=== PATIENT | female | born 1980 | race Caucasian/White ===

== ENCOUNTER → 2016-04-19 | Outpatient (CLI) | payer OTHER ==
--- NOTE | 2016-04-21 07:59 | BMR ---
EXAMINATION TYPE: MR breast BILAT wo/w con DATE OF EXAM: 04/20/2016 5:19 PM COMPARISON: Outside diagnostic bilateral breast mammogram April 04, 2016 BI-RADS 5. Diagnostic lef t breast ultrasound April 04, 2016 BI-RADS 5. HISTORY: Malignant neoplasm, left breast 2 sites on stereotactic guided core biopsy April 10, 2016 . TECHNIQUE: A series of fat and water weighted images in the long and short axis views of both breasts are obtained in conjunction with dynamic contrast MRI with subtraction technique. The patient was i njected with 20 mL intravenous MultiHance gadolinium contrast. Three-dimensional and additional pos tprocessing imaging is created on independent workstation and reviewed during official interpretation of this study. FINDINGS: There is heterogeneously dense fibroglandular tissue redemonstrated throughout both breasts prominent in the upper outer aspects. There is fairly moderate to marked fairly symmetric background parenchymal enhancement making evaluation suboptimal. Corresponding to mammogram and ultrasound ther e is a lobulated mass in the 2 to 3:00 position of the left breast roughly 8 cm from the nipple measu ring 2.4 cm transversely by 2.3 cm anterior posterior dimension by 3.2 cm in craniocaudal dimension c onsistent with biopsy-proven malignancy. Artifact from biopsy clip is noted within the mass along sli ght superior aspect. Just superior to this in the anterior aspect along superior margin of neoplasm or mass there is artif act from biopsy clip which is approximately 4.7 cm away from anterior margin of mass. At this level t here is regional nonmass enhancement measuring roughly 1.5 x 1.3 cm along the medial superior portion of biopsy clip which correlates with second area of malignancy. Lateral to the larger mass there is oval heterogeneous enhancing lesion could reflect reactive lymph node. There are several suspicious asymmetrically enlarged lymph nodes in the left axilla. There is no convincing evidence for pathologic enhancement in the right breast. No suspicious skin th ickening is seen bilaterally. No concerning right axillary adenopathy is noted. No suspicious intrama mmary adenopathy is identified bilaterally. Tiny right-sided pleural effusion inferiorly independentl y is incidentally noted. Impression: MRI findings correlate with mammogram findings of multicentric neoplasm in the left breas t. No suspicious axillary adenopathy is noted. No convincing MRI evidence for invasive malignancy in the right breast. BI-RADS 6 biopsy-proven carcinoma left breast. BI-RADS 2 benign findings right breast. Recommendation: Appropriate surgical and oncologic management for known multifocal left breast cancer
== END | disposition home or self-care (01) ==
LOC: RADMRIMAIN 20:38
PROVIDERS: ATTEND Internal Medicine Hematology & Oncology
DX: C50.912 Malignant neoplasm of unspecified site of left female breast (principal)
CPT/HCPCS: 0159T; C8908; A9577; 77059

== ENCOUNTER → 2016-04-21 | Outpatient (CLI) | payer OTHER ==
--- NOTE | 2016-04-21 11:43 | PE ---
EXAMINATION TYPE: PET CT fusion skull to thigh DATE OF EXAM: 04/21/2016 10:41 AM CLINICAL HISTORY: Left-sided breast cancer initial staging study TECHNIQUE: Following the intravenous administration of 14.45 mCi of F-18 FDG, whole body images are performed from the skull base to the midthigh. Images are reviewed on the computer in the coronal, axial, and sagittal planes. Reconstructed rotating images are created on independent workstation and reviewed on the computer. A non-contrast CT is performed in conjunction with the PET scan. COMPARISON: Bilateral breast MRI from 2 days earlier FINDINGS: SKULL BASE AND NECK: No suspicious hypermetabolic uptake is seen in the neck suggest metastatic will opathy. CHEST, MEDIASTINUM, AND HILAR REGION: There is heterogeneous uptake in left breast mass corresponding to biopsy-proven malignancy measuring 2.2 x 1.3 cm on axial image 95 with max SUV of 10.69. Cranioca udal length is roughly 2.4 cm. No suspicious hypermetabolic uptake is seen to correspond to area of group of calcifications and nons pecific masslike enhancement on MRI anterior to this of second area of biopsy-proven malignancy. Ther e are prominent but benign-appearing left axillary lymph nodes that do not show hypermetabolic uptake , retained fatty hilum is present. No suspicious hypermetabolic uptake is seen in the right breast or axilla. No suspicious hypermetabolic uptake is seen in the remainder of the thorax. ABDOMEN AND PELVIS: No suspicious hypermetabolic uptake is seen in the abdomen or pelvis. Normal excr etion in the kidneys and bladder is identified. OSSEOUS STRUCTURES: No suspicious hypermetabolic uptake is seen in osseous structures. OTHER CT: Nasal septum is slightly deviated to right of midline. Liver is low dense consistent with diffuse fatty infiltration. Low-lying cecum is present in the right pelvis. IMPRESSION: Suspicious hypermetabolic uptake is seen in the biopsy-proven left breast mass or neoplas m. Second area of malignancy anteriorly does not show abnormal hypermetabolic uptake. No metastatic d isease is identified.
== END | disposition home or self-care (01) ==
LOC: RADPETMAIN 07:30
PROVIDERS: ATTEND Surgery
DX: C50.919 Malignant neoplasm of unspecified site of unspecified female breast (principal)
CPT/HCPCS: 78815; A9552

== ENCOUNTER → 2016-04-25 | Outpatient (CLI) | payer OTHER ==
--- NOTE | 2016-04-25 14:52 | US ---
EXAMINATION TYPE: US axilla extremity LT DATE OF EXAM: 04/25/2016 2:13 PM COMPARISON: NONE CLINICAL HISTORY: diagnosed with Breast CA, no palpable area. Findings:: Left axilla scan superiorly to tail of breast. No enlarged lymph nodes seen; no gross ab normality IMPRESSION: 1. No mass or adenopathy noted within the left axilla by ultrasound.
--- NOTE | 2016-04-26 10:54 | ECHOF ---
Referral Reason:C50.112 breast ca MEASUREMENTS -------- HEIGHT: 165.1 cm WEIGHT: 102.1 kg BP: IVSd: 1.5 cm (0.6 - 1.1) LVIDd: 4.2 cm (3.9 - 5.3) LVPWd: 1.5 cm (0.6 - 1.1) IVSs: 2.1 cm LVIDs: 2.5 cm LVPWs: 1.8 cm Ao Diam: 3.1 cm (2.0 - 3.7) AV Cusp: 2.0 cm (1.5 - 2.6) LA Diam: 3.6 cm (2.7 - 3.8) MV EXCURSION: 13.883 mm (> 18.000) MV EF SLOPE: 92 mm/s (70 - 150) EPSS: 0.4 cm MV E Justin: 0.90 m/s MV DecT: 142 ms MV A Justin: 0.85 m/s MV E/A Ratio: 1.06 RAP: 5.00 mmHg RVSP: 20.05 mmHg FINDINGS -------- Sinus rhythm. This was a technically good study. There is moderate concentric left ventricular hypertrophy. Overall left ventricular systolic function is normal with, an EF between 55 - 60 %. The right ventricle is normal in size and function. The left atrium is normal in size. The right atrium is normal in size. The aortic valve is trileaflet, and appears structurally normal. No aortic stenosis or regurgitation. There is trace mitral regurgitation. Trace tricuspid regurgitation present. The right ventricular systolic pressure, as measured by Doppler, is 20.05mmHg. Pulmonic valve appears structurally normal. The aortic root size is normal. The pericardium is normal. CONCLUSIONS -------- 1. Sinus rhythm. 2. Trace tricuspid regurgitation present. 3. The right ventricular systolic pressure, as measured by Doppler, is 20.05mmHg. 4. Pulmonic valve appears structurally normal. 5. The aortic root size is normal. 6. The pericardium is normal. 7. This was a technically good study. 8. There is moderate concentric left ventricular hypertrophy. 9. Overall left ventricular systolic function is normal with, an EF between 55 - 60 %. 10. The right ventricle is normal in size and function. 11. The left atrium is normal in size. 12. The right atrium is normal in size. 13. The aortic valve is trileaflet, and appears structurally normal. No aortic stenosis or regurgitation. 14. There is trace mitral regurgitation. RECENTERER: Zabrina Umana RDCS
== END ==
LOC: RADECHMAIN 13:37
PROVIDERS: ATTEND Internal Medicine Hematology & Oncology
DX: Z01.818 Encounter for other preprocedural examination (principal); I08.1 Rheumatic disorders of both mitral and tricuspid valves; I51.7 Cardiomegaly; C50.112 Malignant neoplasm of central portion of left female breast
CPT/HCPCS: 93306

== ENCOUNTER → 2016-07-11 | Outpatient (CLI) | payer OTHER ==
--- NOTE | 2016-07-12 10:46 | ECHOF ---
Referral Reason:breast ca C50.112 irwin castelanrteta Z01.818 MEASUREMENTS -------- HEIGHT: 10.2 cm WEIGHT: 96.2 kg BP: IVSd: 0.9 cm (0.6 - 1.1) LVIDd: 3.9 cm (3.9 - 5.3) LVPWd: 1.0 cm (0.6 - 1.1) IVSs: 2.4 cm LVIDs: 1.8 cm LVPWs: 1.8 cm Ao Diam: 2.9 cm (2.0 - 3.7) AV Cusp: 2.0 cm (1.5 - 2.6) LA Diam: 3.1 cm (2.7 - 3.8) MV EXCURSION: 13.189 mm (> 18.000) MV EF SLOPE: 67 mm/s (70 - 150) EPSS: 0.2 cm MV E Justin: 0.56 m/s MV DecT: 81 ms MV A Justin: 0.63 m/s MV E/A Ratio: 0.89 RAP: 5.00 mmHg RVSP: 13.29 mmHg FINDINGS -------- Sinus rhythm. This was a technically good study. The left ventricular size is normal. Left ventricular wall thickness is normal. Overall left ventricular systolic function is normal with, an EF between 55 - 60 %. The right ventricle is normal in size and function. The left atrium is normal in size. The right atrium is normal in size. The aortic valve is trileaflet, and appears structurally normal. No aortic stenosis or regurgitation. The mitral valve is normal. There is trace mitral regurgitation. The tricuspid valve appears structurally normal. Trace tricuspid regurgitation present. The right ventricular systolic pressure, as measured by Doppler, is 13.29mmHg. There is no pulmonic regurgitation present. The aortic root size is normal. There is no pericardial effusion. CONCLUSIONS -------- 1. This was a technically good study. 2. The aortic root size is normal. 3. There is no pericardial effusion. 4. Left ventricular wall thickness is normal. 5. Overall left ventricular systolic function is normal with, an EF between 55 - 60 %. 6. The left atrium is normal in size. 7. The aortic valve is trileaflet, and appears structurally normal. No aortic stenosis or regurgitation. 8. There is trace mitral regurgitation. 9. Trace tricuspid regurgitation present. 10. The right ventricular systolic pressure, as measured by Doppler, is 13.29mmHg. 11. There is no pulmonic regurgitation present. MANAGER PRINT: Zabrina Umana RDCS
== END | disposition home or self-care (01) ==
LOC: RADECHMAIN 13:13
PROVIDERS: ATTEND Internal Medicine Hematology & Oncology
DX: Z01.818 Encounter for other preprocedural examination (principal); C50.112 Malignant neoplasm of central portion of left female breast
CPT/HCPCS: 93306

== ENCOUNTER 2016-10-09 06:56 | Observation (INO) | payer OTHER ==
[2016-10-01 10:08] VITALS: BMI 36.0
[~2016-10-09 06:56] MED LIST: ALPRAZolam 0.5 MG TAB PO PRN; DEXAMETHASONE SOD PHOSPHATE 10 MG/ML 1 ML VIAL IV ONE; HEPARIN SODIUM,PORCINE 5,000 UNIT/ML 1 ML VIAL SQ ONE; MIDAZOLAM 2 MG/2 ML VIAL IV PRN; ONDANSETRON 4 MG/2 ML VIAL IVP ONE; Pre Op ABX Message 1 EACH MISC MISCELLANE ONE; SCOPOLAMINE 1.5MG/72HR PATCH TRANSDERM ONE
[2016-10-09] MEDS: LACTATED RINGERS 1,000 ML IV SCH ×2 (07:32→12:07)
[2016-10-09] MEDS ORDERED: ALPRAZolam 0.5 MG TAB PO ONE (07:39)
[2016-10-09] MEDS ORDERED: LIDOCAINE 1% INJ 10MG/ML (20 ML MDV) SQ ONE ×4 (08:23→13:03)
[2016-10-09] MEDS ORDERED: SODIUM BICARB 4% 5 ML VIAL (0.48 MEQ/ML) MISCELLANE ONE (09:00)
[2016-10-09] MEDS ORDERED: METHYLENE BLUE 50 MG/10 ML AMPUL MISCELLANE ONE (10:32)
--- NOTE | 2016-10-09 10:38 | NM ---
EXAMINATION TYPE: NM sentinel node injection DATE OF EXAM: 10/09/2016 COMPARISON: Needle localization earlier today. HISTORY: 36-year-old female with biopsy-proven left breast cancer and DCIS status post neoadjuvant ch emotherapy. TECHNIQUE AND FINDINGS: The procedure of sentinel lymph node injection was explained to the patient. The benefits, alternatives, and risks were discussed. An informed consent was then obtained. Overlying skin is cleaned with sterile alcohol. Lidocaine buffered with bicarbonate was used as anes thetic into the skin and subcutaneous tissue surrounding the nipple. Following this, 545 uCi Tc 99m Filtered Sulfur Colloid was injected into 4 equivalent doses at 12, 3, 6, and 9:00 position surroundi ng the left nipple intradermally. The injection sites were massaged by nuclear powerplant mechanic for 10 minutes after injection. T he patient tolerated the procedure well without any immediate complication. The patient was kept in the radiology department for short stay after the procedure and then taken to surgery for surgical pr ocedure what is presumed intraoperative gamma probe will be used for sentinel lymph node detection. IMPRESSION: Left breast radiotracer injection for sentinel node localization as above.
[2016-10-09] MEDS ORDERED: DEXTROSE 5% IRRIGATION ONE ×6 (10:45)
[2016-10-09] MEDS ORDERED: WATER IRRIGATION ONE ×6 (10:45)
[2016-10-09] MEDS ORDERED: METHYLENE BLUE IRRIGATION ONE ×6 (10:45)
[2016-10-09] MEDS ORDERED: HEPARIN SODIUM,PORCINE 5,000 UNIT/ML 1 ML VIAL SQ ONE (11:49)
[2016-10-09] MEDS ORDERED: ceFAZolin 2 GM in SODIUM CHLORIDE 0.9% 100 ML IVPB ONE (12:00)
[2016-10-09] MEDS ORDERED: fentaNYL (PF) 50 MCG/ML 2 ML AMP ONE (12:19)
[2016-10-09] MEDS ORDERED: MIDAZOLAM 2 MG/2 ML VIAL ONE (12:19)
[2016-10-09] MEDS ORDERED: LIDOCAINE 1% INJ 10MG/ML (20 ML MDV) ONE (12:19)
[2016-10-09] MEDS ORDERED: ONDANSETRON 4 MG/2 ML VIAL ONE (12:19)
[2016-10-09] MEDS ORDERED: PROPOFOL 10 MG/ML 20 ML VIAL IV ONE (12:19)
[2016-10-09] MEDS ORDERED: SUCCINYLCHOLINE CHLORIDE VIAL 200 MG/10 ML VIAL IV ONE (12:19)
[2016-10-09] MEDS ORDERED: METHYLENE BLUE 50 MG/10 ML AMPUL INJ ONE ×2 (12:39→13:03)
--- NOTE | 2016-10-09 14:58 | P.OP ---
Date of Procedure: 10/09/16 Preoperative Diagnosis: Left breast cancer in 2 sites Postoperative Diagnosis: Same Procedure(s) Performed: Lumpectomy of 2 sites of carcinoma in the left breast as well as sentinel node biopsy and lymphatic mapping Implants: Anesthesia: GETA Surgeon: Promise Hodges Estimated Blood Loss (ml): 30 IV fluids (ml): 800 Pathology: other (Lumpectomy site 2, sentinel node biopsy) Condition: stable Disposition: PACU Indications for Procedure: Biopsy-proven left breast cancer 2 sites Operative Findings: Lumpectomy 2 areas in the left breast as well as sentinel node biopsy Description of Procedure: Patient was taken to the operating room and following induction of general anesthesia the right breast was prepped in the periareolar area with alcohol right. Percent methylene blue was injected in the periareolar area over area and the breast massaged for 3 minutes. The this was for lymphatic mapping. The left breast and axilla were then prepped and draped in a sterile fashion. The patient had previously undergone needle localization of 2 areas of concern in the left breast laterally and behind the nipple areolar complex. A localization wire. The lateral area was approached initially. An incision was made and the dissection was carried down along the hook of the needle and surrounding tissue was excised. Radiograph of the specimen revealed that the area of concern had been removed. After assured that hemostasis was attained through the same incision continued dissection was performed to the hook of the second needle which had been placed medially. This was identified and surrounding tissue was excised. Radiograph of the specimen revealed the area of concern about removed. The wound was well irrigated. At this time instruments and gowns and gloves were changed and the axilla was approached. Using the Brien counter the area of increased radioactivity was identified and incision was made and carried down to a blue radioactive lymph node. This was removed and sent for frozen section evaluation which was negative for cancer. Following this the deep tissues were closed using a Vicryl suture followed by closure of the skin with a 4-0 Monocryl. A Eleuterio- Yanez drain was placed prior to this and secured with a nylon suture. Closure of the breast was then performed. Tissue mobilization of approximately 30 cm was performed laterally such that the area could be closed appropriately. A Biozorb sizer colostomy and a 3 x 4 0 Polysorb was chosen. The thyroid was rolled was placed and secured in place using a Vicryl suture. The overlying tissue patient was arranged of the tip of approximately 30 cm was then closed over by 0. Following this the area of the lumpectomy was measured and a sizer was utilized and terminated 4 bioabsorbable placed at this site as well. Surrounding tissue was mobilized the BioSorb was placed and secured using a Vicryl suture and the overlying tissues closed over this. Following this the deep tissues were closed using 3-0 Vicryl suture. Skin was closed using a 4-0 Monocryl. And the final skin suture was a running nylon suture. Patient tolerated procedure in stable condition. All instrument and sponge counts were correct at the end of the case. 2 Biozorb implant markers were placed.
--- NOTE | 2016-10-09 15:03 | P.DS ---
Providers Attending physician: Promise Hodges Primary care physician: Jair Sánchez Plan - Discharge Summary New Discharge Prescriptions: New HYDROcodone/APAP 5-325MG [[place] 5] 1 - 2 each PO Q4H PRN #20 tab PRN Reason: Pain No Action Levothyroxine Sodium [Synthroid] 250 mcg PO DAILY Discharge Medication List Levothyroxine Sodium [Synthroid] 250 mcg PO DAILY 10/01/16 [History] HYDROcodone/APAP 5-325MG [[place] 5] 1 - 2 each PO Q4H PRN #20 tab 10/09/16 [Rx] Follow up Appointment(s)/Referral(s): Promise Hodges MD [STAFF PHYSICIAN] - 1 Week Activity/Diet/Wound Care/Special Instructions: teach drain care do not drive while taking pain medication may shower after 48 hours wear bra at all times Discharge Disposition: HOME SELF-CARE
--- NOTE | 2016-10-09 16:04 | MM ---
EXAMINATION TYPE: MG pre op needle loc LT, MG pre op loc each addl. LT, MG surgical specimen LT x 2. DATE OF EXAM: 10/09/2016 COMPARISON: 04/10/2016 CLINICAL HISTORY: 36-year-old female referred for needle localization for biopsy proven left breast c ancer and DCIS status post new adjuvant chemotherapy. TECHNIQUE: Needle localization with wire placement and surgical excision of area of concern in the le ft breast, 2 sites. FINDINGS: The procedure of needle localization with wire placement and than surgical excision was exp lained to the patient. Benefits, alternatives, and risks were discussed. An informed consent was th en obtained. The shortest pathway for procedure was chosen. Site A, posteriorly and laterally, biopsy-proven breast cancer: The clip was targeted as the mass leanne wed dramatic interval improvement. Shortest pathway was a lateral approach. The overlying skin was pr epped and draped in usual sterile fashion. Lidocaine was used as anesthetic into the skin and subcut aneous tissue up to the level of area of concern. A 9 cm Kopans needle was used. It was placed via a lateral approach under mammographic guidance. Subsequent 90 degrees mammogram show the needle to b e in satisfactory position relative to the targeted area. At this point, wire was placed and the nee dle was withdrawn. The wire was fixed to patient's skin. Site B, anteriorly and medially, biopsy-proven DCIS: Shortest pathway was a medial approach. The over lying skin was prepped and draped in usual sterile fashion. Lidocaine was used as anesthetic into th e skin and subcutaneous tissue up to the level of area of concern. A 7 cm Kopans needle was used. I t was placed via a medial approach under mammographic guidance. Subsequent 90 degrees mammogram show the needle to be in satisfactory position relative to the targeted area. At this point, wire was pl aced and the needle was withdrawn. The wire was fixed to patient's skin. Images were marked for surgeon. The patient tolerated the procedure well without any immediate complication. The patient was kept in the radiology department for short stay after the procedure and then taken to surgery for surgical e xcision. Wire and biopsy clips are identified in both specimen mammograms. The patient was kept in hospital for short stay after the procedure and then discharged home in stabl e condition. IMPRESSION: Successful, uncomplicated needle localization with wire placement and surgical excision of 2 sites (m ore posteriorly, biopsy-proven breast cancer and more anteriorly, DCIS) in the left breast; full path ology results to follow.
[2016-10-09] MEDS ORDERED: METOCLOPRAMIDE 5 MG/ML 2 ML VIAL IVP ONE (16:40)
[2016-10-09] MEDS ORDERED: ONDANSETRON 4 MG/2 ML VIAL IVP PRN (17:49)
[2016-10-09] MEDS ORDERED: HYDROcodone/APAP 5-325MG 1 EACH TAB PO PRN ×2 (17:51)
[2016-10-09] MEDS ORDERED: diphenhydrAMINE 50 MG/ML 1 ML VIAL IVP ONE (18:11)
[2016-10-09] MEDS: HYDROmorphone 1 MG/ML 1 ML SYRINGE IVP PRN (18:57)
[2016-10-09] MEDS: ceFAZolin 2 GM in SODIUM CHLORIDE 0.9% 100 ML IVPB SCH (19:58)
[2016-10-10] MEDS: HYDROmorphone 1 MG/ML 1 ML SYRINGE IVP PRN ×2 (00:18→06:11)
[2016-10-10] MEDS: HEPARIN SODIUM,PORCINE 5,000 UNIT/ML 1 ML VIAL SQ SCH ×2 (00:18→09:50)
[2016-10-10] MEDS: ceFAZolin 2 GM in SODIUM CHLORIDE 0.9% 100 ML IVPB SCH ×2 (00:19→06:10)
[2016-10-10] MEDS: LACTATED RINGERS 1,000 ML IV SCH ×2 (03:40→06:18)
[2016-10-10] MEDS ORDERED: LEVOTHYROXINE 100 MCG TAB PO SCH (06:30)
[2016-10-10] MEDS ORDERED: LEVOTHYROXINE 50 MCG TAB PO SCH (06:30)
[2016-10-10 10:32] VITALS: BP 119/68; PULSE 103; RESP 20; TEMP 98.2
== END 2016-10-10 11:51 | disposition home or self-care (01) ==
LOC: OR 06:56 → 6PED 15:21 → OR 10-10 07:02 → 6PED 10-10 07:03
PROVIDERS: ADMIT Surgery; ATTEND Surgery
DX: C50.912 Malignant neoplasm of unspecified site of left female breast (principal); R11.2 Nausea with vomiting, unspecified; E03.9 Hypothyroidism, unspecified; Z79.899 Other long term (current) drug therapy; Z92.21 Personal history of antineoplastic chemotherapy; Z80.41 Family history of malignant neoplasm of ovary; Z80.42 Family history of malignant neoplasm of prostate; Z80.0 Family history of malignant neoplasm of digestive organs; Z80.8 Family history of malignant neoplasm of other organs or systems; Z90.710 Acquired absence of both cervix and uterus
CPT/HCPCS: 19301; 38900; 38525; 76098; 19281; 19282; 38792; G0378; C1713; A9541; J2250; J0330; J1200; J1644 ×2; J1100; J2765; J0690 ×2; J2405; J2001; J3010; J1170 ×2; J2704; Q9968

== ENCOUNTER → 2016-11-02 | Outpatient (CLI) | payer OTHER ==
--- NOTE | 2016-11-02 12:55 | ECHOF ---
Referral Reason:C50.112 Breast CA,Z01.818 Pre Chemo MEASUREMENTS -------- HEIGHT: 162.6 cm WEIGHT: 97.5 kg BP: 160/84 RVIDd: 3.0 cm (< 3.3) IVSd: 1.3 cm (0.6 - 1.1) LVIDd: 4.1 cm (3.9 - 5.3) LVPWd: 1.3 cm (0.6 - 1.1) IVSs: 1.8 cm LVIDs: 2.8 cm LVPWs: 1.8 cm LA Diam: 3.1 cm (2.7 - 3.8) LAESV Index (A-L): 23.59 ml/m Ao Diam: 3.2 cm (2.0 - 3.7) AV Cusp: 2.3 cm (1.5 - 2.6) MV EXCURSION: 18.048 mm (> 18.000) MV EF SLOPE: 68 mm/s (70 - 150) EPSS: 0.3 cm MV E Justin: 0.89 m/s MV DecT: 242 ms MV A Justin: 0.64 m/s MV E/A Ratio: 1.39 FINDINGS -------- Sinus rhythm. This was a technically good study. The left ventricular size is normal. There is mild concentric left ventricular hypertrophy. Overall left ventricular systolic function is normal with, an EF between 55 - 60 %. The right ventricle is normal in size. Normal LA size by volume 22+/-6 ml/m2. The right atrium is normal in size. The aortic valve is trileaflet and appears structurally normal. The mitral valve is normal. The tricuspid valve appears structurally normal. The pulmonic valve was not well visualized. There is no pulmonic regurgitation present. The aortic root size is normal. IVC Not well visulized. There is no pericardial effusion. CONCLUSIONS -------- 1. Sinus rhythm. 2. There is no pulmonic regurgitation present. 3. The aortic root size is normal. 4. There is no pericardial effusion. 5. This was a technically good study. 6. There is mild concentric left ventricular hypertrophy. 7. Overall left ventricular systolic function is normal with, an EF between 55 - 60 %. 8. Normal LA size by volume 22+/-6 ml/m2. 9. The aortic valve is trileaflet and appears structurally normal. 10. The mitral valve is normal. 11. The tricuspid valve appears structurally normal. 12. The pulmonic valve was not well visualized. 3D ANIMATOR: Zabrina Umana RDCS
== END | disposition home or self-care (01) ==
LOC: RADECHMAIN 11:21
PROVIDERS: ATTEND Internal Medicine Hematology & Oncology
DX: Z01.810 Encounter for preprocedural cardiovascular examination (principal); C50.112 Malignant neoplasm of central portion of left female breast; I51.7 Cardiomegaly
CPT/HCPCS: 93306

== ENCOUNTER → 2017-02-04 | Outpatient (CLI) | payer OTHER ==
--- NOTE | 2017-02-04 18:50 | BD ---
EXAMINATION TYPE: MG DEXA axial skeleton. DATE OF EXAM: 02/04/2017 COMPARISON: NONE CLINICAL HISTORY: Height: 65 IN Weight: 228 LBS FRAX RISK QUESTIONS: Alcohol (3 or more units per day): NO Family History (Parent hip fracture): NO Glucocorticoids (More than 3mos): NO (Ex: prednisone, prednisolone, methylprednisolone, dexamethasone, and hydrocortisone). History of Fracture in Adulthood: NO Secondary Osteoporosis: 1. Type 1 Diabetes: NO 2. Hyperthyroidism: NO 3. Menopause before 45: YES AGE 33 HYSTERECTOMY 4. Malnutrition: NO 5. Chronic liver disease: NO Rheumatoid Arthritis: NO Current Tobacco Use: NO RISK FACTORS HISTORY OF: Active: YES Postmenopausal woman: YES AGE 33 MEDICATIONS: Thyroid Medications: YES Which medication: Synthroid How Lon YEARS Additional Medications: SYNTHROID HERCEPTIN EVERY 3 WEEKS FOR TEN MONTHS Additional History: BREAST CANCER WITH CHEMO AND RADIATION AGE 35 EXAM MEASUREMENTS: Bone mineral densitometry was performed using the Prestigos System. Bone mineral density as measured about the Lumbar spine is: ----- L1-L4(G/cm2): 1.163 T Score Values are as follows: ----- L2: -0.6 ----- L3: 0.1 ----- L4: -0.4 ----- L1-L4: -0.1 Bone mineral density BASELINE Bone mineral density about the R hip (g/cm2): 0.912 Bone mineral density about the L hip (g/cm2): 0.886 T Score values are as follows: -----R Neck: -0.9 -----L Neck: -1.1 -----R Total: -0.6 -----L Total: -0.7 Bone mineral density BASELINE IMPRESSION: 1. Osteopenia (T Score between -2.5 and -1 ) as noted by T score values at the left hip There is slightly increased risk of fracture and the patient may be considered for treatment. Re-Screen 2-5 years. Normal (Values between +1 and -1 indicate normal bone mass) as noted by T score values at the right h ip and lumbar spine. NOTE: T-SCORE=SD OF THE YOUNG ADULT MEAN.
--- NOTE | 2017-02-05 12:24 | ECHOF ---
Referral Reason:Breast Ca C50.112, Z01.818 Pre chemo MEASUREMENTS -------- HEIGHT: 165.1 cm WEIGHT: 99.8 kg BP: 134/74 RVIDd: 3.3 cm (< 3.3) IVSd: 1.2 cm (0.6 - 1.1) LVIDd: 4.8 cm (3.9 - 5.3) LVPWd: 1.2 cm (0.6 - 1.1) IVSs: 1.8 cm LVIDs: 3.3 cm LVPWs: 1.7 cm LA Diam: 3.8 cm (2.7 - 3.8) LAESV Index (A-L): 28.89 ml/m Ao Diam: 2.9 cm (2.0 - 3.7) AV Cusp: 2.1 cm (1.5 - 2.6) MV EXCURSION: 15.618 mm (> 18.000) MV EF SLOPE: 71 mm/s (70 - 150) EPSS: 0.5 cm MV E Justin: 0.80 m/s MV DecT: 186 ms MV A Justin: 0.84 m/s MV E/A Ratio: 0.95 RAP: 5.00 mmHg RVSP: 20.59 mmHg FINDINGS -------- Sinus rhythm. This was a technically good study. The left ventricular size is normal. There is borderline concentric left ventricular hypertrophy. Overall left ventricular systolic function is normal with, an EF between 55 - 60 %. The right ventricle is mildly enlarged. LA is midly dilated 29-33ml/m2. The right atrium is normal in size. The aortic valve is trileaflet and appears structurally normal. There is trace to mild mitral regurgitation. Trace tricuspid regurgitation present. Right ventricular systolic pressure is normal at < 35 mmHg. The pulmonic valve was not well visualized. The aortic root size is normal. IVC Not well visulized. There is no pericardial effusion. CONCLUSIONS -------- 1. Sinus rhythm. 2. There is trace to mild mitral regurgitation. 3. Trace tricuspid regurgitation present. 4. Right ventricular systolic pressure is normal at < 35 mmHg. 5. The pulmonic valve was not well visualized. 6. The aortic root size is normal. 7. IVC Not well visulized. 8. There is no pericardial effusion. 9. This was a technically good study. 10. The left ventricular size is normal. 11. There is borderline concentric left ventricular hypertrophy. 12. Overall left ventricular systolic function is normal with, an EF between 55 - 60 %. 13. The right ventricle is mildly enlarged. 14. LA is midly dilated 29-33ml/m2. 15. The right atrium is normal in size. 16. The aortic valve is trileaflet and appears structurally normal. INTERLOCKING MACHINE OPERATOR: Zabrina Umana RDCS
== END | disposition home or self-care (01) ==
LOC: RADECHMAIN 15:35
PROVIDERS: ATTEND Internal Medicine Hematology & Oncology
DX: Z01.810 Encounter for preprocedural cardiovascular examination (principal); M85.852 Other specified disorders of bone density and structure, left thigh; C50.112 Malignant neoplasm of central portion of left female breast; I08.1 Rheumatic disorders of both mitral and tricuspid valves; Z78.0 Asymptomatic menopausal state; Z79.890 Hormone replacement therapy; Z01.818 Encounter for other preprocedural examination
CPT/HCPCS: 77080; 93306

== ENCOUNTER 2017-03-12 06:53 | Day surgery (SDC) | payer OTHER ==
[2017-03-05 15:06] VITALS: BMI 36.3
[~2017-03-12 06:53] MED LIST changes: -ALPRAZolam 0.5 MG TAB PO PRN; -DEXAMETHASONE SOD PHOSPHATE 10 MG/ML 1 ML VIAL IV ONE; -HEPARIN SODIUM,PORCINE 5,000 UNIT/ML 1 ML VIAL SQ ONE; +LACTATED RINGERS 1,000 ML IV SCH; -MIDAZOLAM 2 MG/2 ML VIAL IV PRN; -ONDANSETRON 4 MG/2 ML VIAL IVP ONE; -Pre Op ABX Message 1 EACH MISC MISCELLANE ONE; -SCOPOLAMINE 1.5MG/72HR PATCH TRANSDERM ONE
[2017-03-12] MEDS ORDERED: LACTATED RINGERS 1,000 ML IV ONE (07:03)
[2017-03-12 07:25] VITALS: TEMP 98.1
[2017-03-12] MEDS ORDERED: PROPOFOL 10 MG/ML 20 ML VIAL IV ONE (07:58)
--- NOTE | 2017-03-12 08:32 | P.PCN ---
Date of Procedure: 03/12/17 Preoperative Diagnosis: Questionable blood per rectum Postoperative Diagnosis: Internal/extension of external componet to hemorrhoids Procedure(s) Performed: Colonoscopy Anesthesia: MAC Surgeon: Promise Hodges Estimated Blood Loss (ml): 0 IV fluids (ml): 300 Pathology: none sent Condition: stable Disposition: PACU Indications for Procedure: Questionable blood per rectum Operative Findings: Tortuous sigmoid colon, internal/extending to external hemorrhoids Description of Procedure: Patient was taken to the endoscopy suite and following sedation rectal exam was performed. Patient was noted to have adequate sphincter tone no external hemorrhoids of concern colonoscope was passed through the anus into the rectum scope was passed into the sigmoid colon which was tortuous and redundant and was then passed through the splenic flexure transverse colon hepatic flexure right colon down to the area of the cecum. Circumferential observation of the mucosa did not reveal any lesions of concern in the cecum or right colon. No lesions of concern in the transverse colon or left colon. As the scope was withdrawn no lesions of concern were noted in the sigmoid colon scope was brought down to the rectum where it was retroflexed. As the scope was withdrawn internal hemorrhoids were identified which had an external extension to them. No mucosal lesions of concern noted. Impression/plan: 1. Internal/external hemorrhoids Plan: 1. Conservative management 2. Repeat scope at age 51 unless patient develops symptoms 14 colonoscopy sooner.
[2017-03-12 08:53] VITALS: BP 128/77; PULSE 79; RESP 18
--- NOTE | 2017-03-12 09:43 | P.DS ---
Providers Attending physician: Promise Hodges Primary care physician: Jair Sánchez Plan - Discharge Summary New Discharge Prescriptions: No Action Levothyroxine Sodium [Synthroid] 250 mcg PO DAILY Discharge Medication List Levothyroxine Sodium [Synthroid] 250 mcg PO DAILY 10/01/16 [History] Follow up Appointment(s)/Referral(s): Promise Hodges MD [STAFF PHYSICIAN] - As Needed Patient Instructions/Handouts: *Surgery [facility] - (Anesthesia) Endoscopy Discharge Instructions, Colonoscopy (DC), Hemorrhoids (DC), Hemorrhoids (GEN) Discharge Disposition: HOME SELF-CARE
== END 2017-03-12 09:56 | disposition home or self-care (01) ==
LOC: ORWHC2ENDO 06:53
PROVIDERS: ATTEND Surgery
DX: K64.8 Other hemorrhoids (principal); K64.4 Residual hemorrhoidal skin tags; E07.9 Disorder of thyroid, unspecified; Q43.8 Other specified congenital malformations of intestine; Z79.899 Other long term (current) drug therapy; Z88.5 Allergy status to narcotic agent; Z90.710 Acquired absence of both cervix and uterus
CPT/HCPCS: 45378; J1642; J2704

== ENCOUNTER → 2017-05-02 | Outpatient (CLI) | payer OTHER ==
--- NOTE | 2017-05-03 08:59 | ECHOF ---
Referral Reason:C50.112 Breast Ca, Z01.818 Post Herceptin MEASUREMENTS -------- HEIGHT: 162.6 cm WEIGHT: 90.7 kg BP: RVIDd: 3.6 cm (< 3.3) IVSd: 1.2 cm (0.6 - 1.1) LVIDd: 4.8 cm (3.9 - 5.3) LVPWd: 1.1 cm (0.6 - 1.1) IVSs: 1.6 cm LVIDs: 3.7 cm LVPWs: 1.7 cm LAESV Index (A-L): 13.41 ml/m Ao Diam: 3.4 cm (2.0 - 3.7) AV Cusp: 2.1 cm (1.5 - 2.6) LA Diam: 3.0 cm (2.7 - 3.8) MV E Justin: 0.75 m/s MV DecT: 299 ms MV A Justin: 0.75 m/s MV E/A Ratio: 0.99 FINDINGS -------- Sinus rhythm. This was a technically adequate study. The left ventricular size is normal. There is mild concentric left ventricular hypertrophy. Overa ll left ventricular systolic function is low-normal with, an EF between 50 - 55 %. The right ventricle is mildly enlarged. The right ventricular systolic function is normal. Normal LA size by volume 22+/-6 ml/m2. The right atrium is normal in size. The aortic valve is trileaflet, and appears structurally normal. No aortic stenosis or regurgitation. The mitral valve leaflets are mildly thickened. There is trace mitral regurgitation. Trace tricuspid regurgitation present. Right ventricular systolic pressure is normal at < 35 mmHg. There is no evidence of pulmonary hypertension. The pulmonic valve was not well visualized. The aortic root size is normal. Normal inferior vena cava with normal inspiratory collapse consistent with estimated right atrial pre ssure of 5 mmHg. The pericardium is normal. There is no pericardial effusion. CONCLUSIONS -------- 1. Sinus rhythm. 2. This was a technically adequate study. 3. The left ventricular size is normal. 4. There is mild concentric left ventricular hypertrophy. 5. Overall left ventricular systolic function is low-normal with, an EF between 50 - 55 %. 6. The right ventricle is mildly enlarged. 7. Normal LA size by volume 22+/-6 ml/m2. 8. The aortic valve is trileaflet, and appears structurally normal. No aortic stenosis or regurgitati on. 9. The mitral valve leaflets are mildly thickened. 10. There is trace mitral regurgitation. 11. Trace tricuspid regurgitation present. 12. Right ventricular systolic pressure is normal at < 35 mmHg. 13. There is no evidence of pulmonary hypertension. 14. The pulmonic valve was not well visualized. 15. The aortic root size is normal. 16. There is no pericardial effusion. DIANETICIST: Luca Medrano RDCS
== END | disposition home or self-care (01) ==
LOC: RADECHMAIN 16:12
PROVIDERS: ATTEND Internal Medicine Hematology & Oncology
DX: Z01.818 Encounter for other preprocedural examination (principal); C50.112 Malignant neoplasm of central portion of left female breast; I05.9 Rheumatic mitral valve disease, unspecified; Z92.21 Personal history of antineoplastic chemotherapy
CPT/HCPCS: 93306

== ENCOUNTER → 2017-05-20 | Outpatient (CLI) | payer OTHER ==
[~2017-05-20] MED LIST changes: -LACTATED RINGERS 1,000 ML IV SCH; +LEUPROLIDE ACET 11.25MG SYRGKIT IM ONE
[2017-05-20 09:05] VITALS: BP 130/83; PULSE 101; RESP 16; TEMP 98
== END | disposition home or self-care (01) ==
LOC: PROCWHC3 08:52
PROVIDERS: ATTEND Internal Medicine Hematology & Oncology
DX: C50.112 Malignant neoplasm of central portion of left female breast (principal); Z79.811 Long term (current) use of aromatase inhibitors
CPT/HCPCS: 96402; J1950

== ENCOUNTER → 2017-05-24 | Outpatient (CLI) | payer OTHER ==
--- NOTE | 2017-05-24 12:33 | CT ---
EXAMINATION TYPE: CT abdomen w con DATE OF EXAM: 05/24/2017 COMPARISON: NONE HISTORY: Breast cancer; Abn liver functions CT DLP: 1728 mGycm Automated exposure control for dose reduction was used. TECHNIQUE: Helical acquisition of images was performed from the lung bases through the top of iliac crest to include entire abdomen. CONTRAST: Performed with Oral Contrast and with IV Contrast, patient injected with 100 ml mL of Omnipaque 300. FINDINGS: LUNG BASES: There is evidence of hepatic steatosis with hepatomegaly. No space-occupying lesion is id entified. LIVER/GB: No significant abnormality is appreciated. PANCREAS: No significant abnormality is seen. SPLEEN: No significant abnormality is seen. ADRENALS: No significant abnormality is seen. KIDNEYS: No significant abnormality is seen. BOWEL: No significant abnormality is seen. LYMPH NODES: No significant abnormality is seen. OSSEOUS STRUCTURES: No significant abnormality is seen. FREE AIR: No free air is visualized. OTHER: IMPRESSION: HEPATOMEGALY WITH HEPATIC STEATOSIS. NO SPACE-OCCUPYING LESIONS IDENTIFIED.
== END | disposition home or self-care (01) ==
LOC: RADCTMAIN 11:28
PROVIDERS: ATTEND Internal Medicine Hematology & Oncology
DX: K76.0 Fatty (change of) liver, not elsewhere classified (principal); R16.0 Hepatomegaly, not elsewhere classified; C50.112 Malignant neoplasm of central portion of left female breast; Z92.21 Personal history of antineoplastic chemotherapy
CPT/HCPCS: 74160; Q9967

== ENCOUNTER → 2017-05-27 | Outpatient (CLI) | payer OTHER ==
--- NOTE | 2017-05-27 13:14 | MM ---
Reason for exam: history of breast cancer, conservation therapy. Last mammogram was performed 7 months ago. History: Patient has history of breast cancer at age 36. Chemotherapy, April 2017. Radiation therapy of the left breast, January 2017. Malignant MG pre op loc each addl LT of the left breast, October 09, 2016. Malignant MG pre op needle loc LT of the left breast, October 09, 2016. Lumpectomy of the left breast, September 2016. Took antineoplastic for 2 months beginning at age 36. Physical Findings: Nurse did not find any significant physical abnormalities on exam. MG Diagnostic Mammo w CAD LURDES Bilateral CC, MLO, and ML view(s) were taken. Spot compression CC view(s) were taken of the right breast. Prior study comparison: October 09, 2016, mammogram. April 19, 2016, bilateral MR breast bilat wo/w con. April 04, 2016, mammogram. On the right a nodular asymmetry centrally on the CC view appears to measure 5mm at 1 o'clock on the lateral view. Surgical clips associated with 2 focal masses in the 9 o'clock subareolar and 3 o'clock left breast possible chronic post operative changes. These results were verbally communicated with the patient and result sheet given to the patient on 05/27/17. ASSESSMENT: Incomplete: need additional imaging evaluation, BI-RAD 0 RECOMMENDATION: Ultrasound of both breasts. (right 12-2 o'clock, left 9 o'clock and 3 o'clock)
--- NOTE | 2017-05-27 13:19 | USB ---
Reason for exam: additional evaluation requested from abnormal screening. History: Patient has history of breast cancer at age 36. Chemotherapy, April 2017. Radiation therapy of the left breast, January 2017. Malignant MG pre op loc each addl LT of the left breast, October 09, 2016. Malignant MG pre op needle loc LT of the left breast, October 09, 2016. Lumpectomy of the left breast, September 2016. Took antineoplastic for 2 months beginning at age 36. Physical Findings: Nurse did not find any significant physical abnormalities on exam. US Breast Limited BILAT Right breast ultrasound demonstrates a 5 x 3 x 4mm oval, hypoechoic lesion at 2 o'clock, possibly cystic, 6 month ultrasound and mammogram recommended. Left breast ultrasound includes all four quadrants, the retroareolar region and axilla. Finding demonstrates a 26 x 24 x 18mm irregular, mixed, hypoechoic lesion at 3 o'clock and a 33 x 28 x 48mm irregular, hypoechoic lesion at the posterior nipple. Possible chronic post perioperative changes. Biopsy is recommended. These results were verbally communicated with the patient and result sheet given to the patient on 05/27/17. ASSESSMENT: Left Breast: Suspicious, BI-RAD 4 Right Breast: Probably benign, BI-RADS 3 RECOMMENDATION: 1. LEFT: Ultrasound core biopsy of the left breast. (2 sites) 2. RIGHT: 6 month f/u diagnositic mammogram and targeted ultrasound at 2:00. Called Dr. Cosme with mammographic findings. Biopsy scheduled for 05/29/17 at 8 o'clock. PRELIMINARY REPORT CALLED AND FAXED TO DR. COSME ON 05/27/17. [facility]
== END | disposition home or self-care (01) ==
LOC: RADMAMWWP 09:35
PROVIDERS: ATTEND Internal Medicine Hematology & Oncology
DX: Z08 Encounter for follow-up examination after completed treatment for malignant neoplasm (principal); Z85.3 Personal history of malignant neoplasm of breast
CPT/HCPCS: 77066

== ENCOUNTER → 2017-05-29 | Day surgery (SDC) | payer OTHER ==
[2017-05-29 07:18] VITALS: RESP 16; BMI 38.2
--- NOTE | 2017-05-29 09:34 | USB ---
ULTRASOUND GUIDED FNA AND CORE BIOPSY LEFT BREAST: CLINICAL HISTORY: Abnormal mammogram and ultrasound FINDINGS: The procedure was explained to the patient. The risks, complications, benefits and alternatives were discussed and any questions were answered. Informed consent was obtained. Patient was placed supine on the ultrasound table and prepped and draped in the usual sterile fashion. Utilizing a 18-gauge vacuum assisted needle five passes were made into the 2 requested locations within the left breast. The core samples did not yield a large amount of soft tissue. Therefore aspiration was performed and there is removal of approximately 8 cc of fluid in the subareolar central region and approximately 6 cc within the 3: 00 region. Follow-up mammogram demonstrated ideal placement of post procedural clips. The size of the area of concern was markedly reduced relative to the previous mammogram. Patient was stable throughout the procedure. Pathology is pending. All elements of maximal barrier technique were utilized. IMPRESSION: 1. Successful ultrasound guided FNA and core biopsy of the 2 requested sites within the left breast. As noted above there appear to be a large fluid component to both lesions which was aspirated as well as sampled by core biopsy. See above. Follow-up MRI could BE obtained as clinically warranted if pathology does not yield adequate diagnosis or concordant diagnosis. Pathology Results: Benign A. BREAST, LEFT, THREE O'CLOCK, ASPIRATE: MINIMALLY CELLULAR SPECIMEN CONSISTING OF BLOOD AND SCATTERED HISTIOCYTES; NON-DIAGNOSTIC. B. BREAST, LEFT, POSTERIOR NIPPLE, ASPIRATE: VIRTUALLY ACELLULAR SPECIMEN CONSISTING OF BLOOD AND INFLAMMATORY CELLS; NON-DIAGNOSTIC. A. BREAST, LEFT, THREE O'CLOCK, CORE BIOPSY: SCAR WITH FIBROSIS AND FAT NECROSIS. NEGATIVE FOR MALIGNANCY. B. BREAST, LEFT, POSTERIOR NIPPLE, CORE BIOPSY: SCAR WITH FIBROSIS, FAT NECROSIS AND SCLEROSING ADENOSIS. NEGATIVE FOR MALIGNANCY. SEE NOTE. Recommendation Follow up mammogram of the left breast in 6 months. SARKIS
[2017-05-29 09:45] VITALS: BP 115/76; PULSE 103; TEMP 98.3
--- NOTE | 2017-05-29 09:50 | MM ---
Reason for exam: additional evaluation requested from abnormal screening. Last mammogram was performed less than 1 month ago. History: Patient has history of breast cancer at age 36. Chemotherapy, April 2017. Radiation therapy of the left breast, January 2017. Malignant MG pre op loc each addl LT of the left breast, October 09, 2016. Malignant MG pre op needle loc LT of the left breast, October 09, 2016. Lumpectomy of the left breast, September 2016. Took antineoplastic for 2 months beginning at age 36. MG Diagnostic Mammo LT Wo CAD CC and MLO view(s) were taken of the left breast. Prior study comparison: May 27, 2017, bilateral MG diagnostic mammo w CAD LURDES. October 09, 2016, mammogram. ASSESSMENT: Post procedure mammogram for marker placement RECOMMENDATION: Ultrasound of the left breast in 6 months. PENDING PATHOLOGY RESULTS.
== END | disposition home or self-care (01) ==
LOC: RADUSWWP 06:55
PROVIDERS: ATTEND Internal Medicine Hematology & Oncology
DX: N64.1 Fat necrosis of breast (principal); N60.32 Fibrosclerosis of left breast; N60.22 Fibroadenosis of left breast; Z85.3 Personal history of malignant neoplasm of breast; Z92.21 Personal history of antineoplastic chemotherapy; Z92.3 Personal history of irradiation; Z88.5 Allergy status to narcotic agent
CPT/HCPCS: 10022 ×2; 88305; 88173; 88342; 88341; 77065; 76942; 19083; 19084; A4648; J2001

== ENCOUNTER 2017-07-26 05:45 | Day surgery (SDC) | payer OTHER ==
[2017-07-22 11:34] VITALS: BMI 36.8
--- NOTE | 2017-07-25 17:41 | P.GSHP ---
History of Present Illness H&P Date: 07/26/17 CHIEF COMPLAINT: Breast cancer. HISTORY OF PRESENT ILLNESS: The patient is a 36-year-old female diagnosed with invasive breast cancer. She had a Mediport placement. She presents for Port-A-Cath removal upon completion of her chemotherapy. PAST MEDICAL HISTORY: Breast cancer. PAST SURGICAL HISTORY: Breast biopsy. CURRENT MEDICATIONS: See list. ALLERGIES: See list. SOCIAL HISTORY: No active tobacco or alcohol use. FAMILY HISTORY: Noncontributory. REVIEW OF ORGAN SYSTEMS: CONSTITUTIONAL: Denies any fever or chills. Denies recent weight loss or weight gain. HEENT: Denies any trouble with vision, hearing or nosebleeds. No difficulty swallowing. BREASTS: Please see above. PHYSICAL EXAMINATION: Vital signs: Stable GENERAL: Well developed female and in no acute distress. Pleasant. HEENT: No sclera icterus. Extraocular movements grossly intact. Moist buccal mucosa. Head is atraumatic, normocephalic. Hears conversational speech. No nasal drainage. NECK: Supple without lymphadenopathy. No JV distention. CHEST: Non-labored respirations and equal bilateral excursions. CARDIOVASCULAR: Regular rate and rhythm. Palpable 2+ radial pulses. ABDOMEN: Nontender. MUSCULOSKELETAL: No clubbing, cyanosis or edema. NEUROLOGIC: No focal or lateralizing signs. PSYCH: Appropriate affect. Alert and oriented to person, place and time. ASSESSMENT: 1. Breast cancer. 2. Need for chemotherapeutic access. PLAN: 1. Agree with Port-A-Cath removal per patient's request. Past Medical History Past Medical History: Cancer, Hypertension, Thyroid Disorder Additional Past Medical History / Comment(s): dx. 2015 w/breast cancer received chemo and radiation, anemia during previous History of Any Multi-Drug Resistant Organisms: None Reported Past Surgical History: Breast Surgery, Section, Hysterectomy Additional Past Surgical History / Comment(s): C/S x3, thyroidectomy. September 2016 Left Breast Lumpectomy Past Anesthesia/Blood Transfusion Reactions: Motion Sickness, Postoperative Nausea & Vomiting (PONV) Additional Past Anesthesia/Blood Transfusion Reaction / Comment(s): severe PONV Smoking Status: Never smoker - Past Family History Father Family Medical History: Cancer Sister(s) Family Medical History: Cancer Medications and Allergies Home Medications Medication Instructions Recorded Confirmed Type Levothyroxine Sodium [Synthroid] 250 mcg PO DAILY 10/01/16 07/22/17 History Biotin 2,500 mcg PO DAILY 07/22/17 07/22/17 History Cholecalciferol (Vitamin D3) 2,000 unit PO DAILY 07/22/17 07/22/17 History [Vitamin D3] Lisinopril [Zestril] 10 mg PO DAILY 07/22/17 07/22/17 History Allergies Allergy/AdvReac Type Severity Reaction Status Date / Time morphine AdvReac Nausea & Verified 07/22/17 11:20 Vomiting
[~2017-07-26 05:45] MED LIST changes: -LEUPROLIDE ACET 11.25MG SYRGKIT IM ONE; +ceFAZolin IN SWFI 2 GM/20 ML SYRINGE IVP ONE
[2017-07-26] MEDS ORDERED: ONDANSETRON 4 MG/2 ML VIAL IVP ONE (05:46)
[2017-07-26] MEDS ORDERED: DEXAMETHASONE SOD PHOSPHATE 10 MG/ML 1 ML VIAL IV ONE (05:46)
[2017-07-26] MEDS ORDERED: LACTATED RINGERS 1,000 ML IV SCH (05:46)
[2017-07-26] MEDS ORDERED: MIDAZOLAM 2 MG/2 ML VIAL IV PRN (05:46)
[2017-07-26] MEDS ORDERED: fentaNYL (PF) 50 MCG/ML 2 ML AMP IV PRN (05:46)
[2017-07-26 06:24] VITALS: TEMP 97.3
[2017-07-26] MEDS ORDERED: LIDOCAINE 1% 20 ML VIAL (10MG/ML) FOR IV START INTRADERMA ONE (06:38)
[2017-07-26] MEDS ORDERED: SCOPOLAMINE 1.5MG/72HR PATCH TRANSDERM ONE (06:42)
[2017-07-26] MEDS ORDERED: LIDOCAINE 1% INJ 10MG/ML (20 ML MDV) ONE (07:34)
[2017-07-26] MEDS ORDERED: PROPOFOL 10 MG/ML 20 ML VIAL IV ONE (07:34)
[2017-07-26] MEDS ORDERED: fentaNYL (PF) 50 MCG/ML 2 ML AMP ONE (07:34)
[2017-07-26] MEDS ORDERED: MIDAZOLAM 2 MG/2 ML VIAL ONE (07:34)
[2017-07-26] MEDS ORDERED: BUPIVACAINE (PF) 0.5% 30 ML VIAL SQ ONE (07:49)
--- NOTE | 2017-07-26 08:07 | P.OP ---
Date of Procedure: 07/26/17 Description of Procedure: SURGEON: CARMEN MARCELINO MD PROGRAM SUPPORT SPECIALIST: None. PREOPERATIVE DIAGNOSIS: 1. Breast cancer 2. Chemotherapeutic venous access. POSTOPERATIVE DIAGNOSIS: 1. Breast cancer 2. Chemotherapeutic venous access. OPERATION: Removal of right internal jugular vein Port-A-Cath. ANESTHESIA: MAC with 30 mL local ESTIMATED BLOOD LOSS: 5 mL SPECIMENS REMOVED: Port-A-Cath COMPLICATIONS: None. INDICATIONS: The patient is a 36-year-old female who completed chemotherapy for breast cancer. She now has elected for removal. Benefits and risks were described. Informed consent was obtained. DESCRIPTION OF PROCEDURE: Patient was brought to the operating room, laid in supine position. After IV sedation the chest wall on the left side was prepped and draped in standard sterile fashion. Prior to incision, a timeout protocol was confirmed with surgical team regarding the patient's name including procedures to be performed. As this was a clean case, no further antibiotics were required. Additionally, early ambulation was encouraged for DVT prophylaxis. Attention was brought to the area of the port site, whereby a total of 30 mL of local was infiltrated into the skin for a field block. A #15 blade was used to incise along the previous cicatrix. Electro- Bovie cautery was used to control for hemostasis. Adhesions were lysed around the Mediport. The port was extracted without sequelae. Pressure for 2 minutes was placed along the internal jugular vein. Hemostasis was checked along the pocket of the Port-A-Cath site. The wound was closed in layers using 3-0 Vicryl for the deep subcutaneous tissues followed by 4-0 Monocryl in a running subcuticular fashion. Dermabond was applied to the skin. Once dried a 4 x 4 Optifoam was applied. At the end of the procedure needle, sponge and instrument counts were verified correct by the director surgical. The patient had tolerated the procedure well and was taken to postanesthesia care in stable condition. FINDINGS: 1. Unremarkable Port-a-cath extraction. Plan - Discharge Summary New Discharge Prescriptions: New Ibuprofen [Motrin] 600 mg PO Q8HR PRN #20 tab PRN Reason: Pain No Action Levothyroxine Sodium [Synthroid] 250 mcg PO DAILY Lisinopril [Zestril] 10 mg PO DAILY Cholecalciferol (Vitamin D3) [Vitamin D3] 2,000 unit PO DAILY Biotin 2,500 mcg PO DAILY Discharge Medication List Levothyroxine Sodium [Synthroid] 250 mcg PO DAILY 10/01/16 [History] Biotin 2,500 mcg PO DAILY 07/22/17 [History] Cholecalciferol (Vitamin D3) [Vitamin D3] 2,000 unit PO DAILY 07/22/17 [History] Lisinopril [Zestril] 10 mg PO DAILY 07/22/17 [History] Ibuprofen [Motrin] 600 mg PO Q8HR PRN #20 tab 07/26/17 [Rx] Follow up Appointment(s)/Referral(s): Carmen Marcelino MD [STAFF PHYSICIAN] - As Needed Activity/Diet/Wound Care/Special Instructions: Expecting bruising for the next 5 days that will resolve in 2 weeks. May shower. No bathtub soaks. Remove dressing on Saturday. Discharge Disposition: HOME SELF-CARE
[2017-07-26 08:42] VITALS: BP 121/65; PULSE 100; RESP 18
== END 2017-07-26 09:01 | disposition home or self-care (01) ==
LOC: OR 05:45
PROVIDERS: ATTEND Surgery Plastic and Reconstructive Surgery
DX: Z45.2 Encounter for adjustment and management of vascular access device (principal); Z85.3 Personal history of malignant neoplasm of breast; Z17.0 Estrogen receptor positive status [ER+]; Z92.21 Personal history of antineoplastic chemotherapy; Z92.3 Personal history of irradiation; I10 Essential (primary) hypertension; E89.0 Postprocedural hypothyroidism; Z79.890 Hormone replacement therapy; Z79.899 Other long term (current) drug therapy; Z88.5 Allergy status to narcotic agent
CPT/HCPCS: 36590; J2250; J1100; J2405; J2001; J3010; J2704; J0690

== ENCOUNTER → 2017-08-19 | Outpatient (CLI) | payer OTHER ==
[~2017-08-19] MED LIST changes: +LEUPROLIDE ACET 11.25MG SYRGKIT IM ONE; +SODIUM CHLORIDE 0.9% 500 ML in EMPTY BAG 1 BAG IV PRN; +ZOLEDRONIC ACID 4 MG in SODIUM CHLORIDE 0.9% 100 ML IV ONE; -ceFAZolin IN SWFI 2 GM/20 ML SYRINGE IVP ONE
[2017-08-19 09:06] VITALS: BP 122/84; PULSE 73; RESP 16; TEMP 98.3
== END | disposition home or self-care (01) ==
LOC: PROCWHC3 08:46
PROVIDERS: ATTEND Internal Medicine Hematology & Oncology
DX: C50.112 Malignant neoplasm of central portion of left female breast (principal); Z79.811 Long term (current) use of aromatase inhibitors
CPT/HCPCS: 96365; 96402; J3489; J1950

== ENCOUNTER → 2017-08-21 | Outpatient (CLI) | payer OTHER ==
--- NOTE | 2017-08-21 15:54 | ECHOF ---
Referral Reason:C50.11 Breast Cancer Z01.818 Encounter for other p MEASUREMENTS -------- HEIGHT: 162.6 cm WEIGHT: 99.8 kg BP: RVIDd: 3.0 cm (< 3.3) IVSd: 1.2 cm (0.6 - 1.1) LVIDd: 5.0 cm (3.9 - 5.3) LVPWd: 1.2 cm (0.6 - 1.1) IVSs: 1.5 cm LVIDs: 3.8 cm LVPWs: 1.4 cm LAESV Index (A-L): 17.99 ml/m Ao Diam: 2.8 cm (2.0 - 3.7) AV Cusp: 1.7 cm (1.5 - 2.6) LA Diam: 3.1 cm (2.7 - 3.8) EPSS: 0.3 cm MV E Justin: 0.68 m/s MV DecT: 469 ms MV A Justin: 0.85 m/s MV E/A Ratio: 0.80 RAP: 5.00 mmHg RVSP: 19.28 mmHg MV EF SLOPE: 93.70 mm/s (70 - 150) MV EXCURSION: 1.71 cm (> 18.000) FINDINGS -------- Sinus rhythm. This was a technically adequate study. The left ventricular size is normal. There is mild concentric left ventricular hypertrophy. Overa ll left ventricular systolic function is low-normal with, an EF between 50 - 55 %. The right ventricle is normal in size and function. Normal LA size by volume 22+/-6 ml/m2. The right atrium is normal in size. The aortic valve is trileaflet, and appears structurally normal. No aortic stenosis or regurgitation. The mitral valve leaflets are mildly thickened. There is trace mitral regurgitation. Trace tricuspid regurgitation present. Right ventricular systolic pressure is normal at < 35 mmHg. There is no evidence of pulmonary hypertension. The pulmonic valve was not well visualized. The aortic root size is normal. Normal inferior vena cava with normal inspiratory collapse consistent with estimated right atrial pre ssure of 5 mmHg. There is no pericardial effusion. CONCLUSIONS -------- 1. Sinus rhythm. 2. This was a technically adequate study. 3. The left ventricular size is normal. 4. There is mild concentric left ventricular hypertrophy. 5. Overall left ventricular systolic function is low-normal with, an EF between 50 - 55 %. 6. Normal LA size by volume 22+/-6 ml/m2. 7. The aortic valve is trileaflet, and appears structurally normal. No aortic stenosis or regurgitati on. 8. The mitral valve leaflets are mildly thickened. 9. There is trace mitral regurgitation. 10. Trace tricuspid regurgitation present. 11. Right ventricular systolic pressure is normal at < 35 mmHg. 12. There is no evidence of pulmonary hypertension. 13. The pulmonic valve was not well visualized. 14. The aortic root size is normal. 15. There is no pericardial effusion. JEWEL INSPECTOR: Luca Niño RDCS
== END | disposition home or self-care (01) ==
LOC: RADECHMAIN 12:47
PROVIDERS: ATTEND Internal Medicine Hematology & Oncology
DX: Z01.818 Encounter for other preprocedural examination (principal); C50.112 Malignant neoplasm of central portion of left female breast; I08.1 Rheumatic disorders of both mitral and tricuspid valves
CPT/HCPCS: 93306

== ENCOUNTER → 2017-09-18 | Outpatient (CLI) | payer OTHER ==
--- NOTE | 2017-09-18 07:44 | US ---
EXAMINATION TYPE: US abdomen complete DATE OF EXAM: 09/18/2017 COMPARISON: CT 05/24/2017 CLINICAL HISTORY: R94.5 Abnormal Liver Functions. History of breast cancer. Elevated liver enzymes. N o other symptoms EXAM MEASUREMENTS: Liver Length: 22.9 cm Gallbladder Wall: 0.2 cm CBD: 0.3 cm Spleen: 11.4 cm Right Kidney: 12.7 x 6.0 x 5.2 cm Left Kidney: 11.4 x 5.4 x 4.8 cm Pancreas: Tail obscured by overlying bowel gas, visualized portions show no abnormality Liver: Coarse and echogenic echotexture. Enlarged Gallbladder: wnl Evidence for sonographic Vargas's sign: No CBD: wnl Spleen: wnl Right Kidney: No hydronephrosis or masses seen Left Kidney: No hydronephrosis or masses seen Upper IVC: wnl Abd Aorta: Obscured by bowel gas, visualized portions wnl The liver is coarse and echogenic. The intrahepatic portion of the IVC and proximal abdominal aorta are within normal limits. There is no evidence of cholelithiasis. Common bile duct is unremarkable. The visualized portions of the pancreas are homogenous. The spleen is unremarkable. Kidneys are s ymmetric and free of hydronephrosis. No renal lesions are seen. IMPRESSION: 1. Fatty hepatic infiltration. Hepatomegaly.
== END | disposition home or self-care (01) ==
LOC: RADUSWWP 06:57
PROVIDERS: ATTEND Internal Medicine Hematology & Oncology
DX: K76.0 Fatty (change of) liver, not elsewhere classified (principal); R16.0 Hepatomegaly, not elsewhere classified
CPT/HCPCS: 76700

== ENCOUNTER → 2017-09-19 | Outpatient (CLI) | payer OTHER ==
--- NOTE | 2017-09-19 12:14 | USB ---
Reason for exam: clinical finding. History: Patient has history of breast cancer at age 36. Benign US breast aspiration ea add LT of the left breast, May 29, 2017. Benign US breast aspiration single LT of the left breast, May 29, 2017. Benign US breast needle core LT of the left breast, May 29, 2017. Benign US breast needle core addl LT of the left breast, May 29, 2017. Chemotherapy, April 2017. Radiation therapy of the left breast, January 2017. Malignant MG pre op loc each addl LT of the left breast, October 09, 2016. Malignant MG pre op needle loc LT of the left breast, October 09, 2016. Lumpectomy of the left breast, September 2016. Took antineoplastic for 2 months beginning at age 36. Indicated problem(s): palpable abnormality in the left breast. Physical Findings: Nurse Summary: x 2 BB's (nurse kp). US Breast LT Left complete breast ultrasound includes all four quadrants, the retroareolar region and axilla. Finding demonstrates a 1.1 x 1.6 x 1.9cm mixed lesion at 3 o'clock, patient reports this is increased in size and a 2.4 x 2.1 x 2.5cm mixed lesion at 10 o'clcok. These are at biopsy sites. Appearance of biopsy site and cancer would be the same. Consider MRI. Biopsy of the site could be performed under ultrasound. These results were verbally communicated with the patient and result sheet given to the patient on 09/19/17. ASSESSMENT: Probably benign, BI-RAD 3 RECOMMENDATION: Surgical consultation of the left breast. (3 o'clock increased in size previous biopsy site. This could be biopsied by ultrasound) Called with mammographic findings and has scheduled an appointment for the patient for 09/20/17 at 12:[address] Hodges. PRELIMINARY REPORT CALLED AND FAXED TO DR. HODGES ON 09/19/17.
== END | disposition home or self-care (01) ==
LOC: RADUSWWP 08:48
PROVIDERS: ATTEND Internal Medicine Hematology & Oncology
DX: N64.52 Nipple discharge (principal); Z85.3 Personal history of malignant neoplasm of breast

== ENCOUNTER → 2017-09-20 | Outpatient (CLI) | payer OTHER ==
[2017-09-20 12:44] VITALS: BP 105/66; PULSE 99; TEMP 98.2; BMI 36.8
--- NOTE | 2017-09-20 13:16 | P.GSHP ---
Past Medical History Past Medical History: Cancer, Thyroid Disorder Additional Past Medical History / Comment(s): dx. 2015 w/breast cancer, anemia during previous History of Any Multi-Drug Resistant Organisms: None Reported Past Surgical History: Section, Hysterectomy Additional Past Surgical History / Comment(s): C/S x3, thyroidectomy Past Anesthesia/Blood Transfusion Reactions: Motion Sickness, Postoperative Nausea & Vomiting (PONV) Additional Past Anesthesia/Blood Transfusion Reaction / Comment(s): severe PONV Smoking Status: Never smoker - Past Family History Father Family Medical History: Cancer Sister(s) Family Medical History: Cancer Medications and Allergies Home Medications Medication Instructions Recorded Confirmed Type Levothyroxine Sodium [Synthroid] 250 mcg PO DAILY 10/01/16 09/20/17 History Biotin 2,500 mcg PO DAILY 07/22/17 09/20/17 History Cholecalciferol (Vitamin D3) 2,000 unit PO DAILY 07/22/17 09/20/17 History [Vitamin D3] Lisinopril [Zestril] 10 mg PO DAILY 07/22/17 09/20/17 History Allergies Allergy/AdvReac Type Severity Reaction Status Date / Time morphine AdvReac Nausea & Verified 08/19/17 09:07 Vomiting Surgical - Exam Vital Signs Temp Pulse BP Pulse Ox 98.2 F 99 105/66 96 09/20/17 12:39 09/20/17 12:39 09/20/17 12:39 09/20/17 12:39
--- NOTE | 2017-10-24 08:39 | P.GSHP ---
History of Present Illness H&P Date: 09/20/17 The patient is a 37-year-old white female who is status post left breast lumpectomy with neoadjuvant chemotherapy and radiation therapy to the left breast. She was initially diagnosed in March 2016 at the age of 35. She subsequently underwent neoadjuvant chemotherapy and then underwent a lumpectomy with radiation therapy to follow. She is recently noticed an area in the left breast of increasing size and discomfort. In June 2017 she underwent core biopsy of the left breast and all areas which were cored were negative for malignancy. At that time follow-up mammogram of the left breast in 6 months time was recommended. The last radiographic evaluation of the right breast was in April 2016 which was by an MRI. No lesions of concern at that time were noted in the right breast. Patient had repeat left breast ultrasound performed yesterday and this was reviewed with the radiologist. Upon reviewing his been recommended that she have a repeat core biopsy of at minimum the area of 3:00 in the left breast. family history: father: prostate siter: thyroid maternal grandmother: ovarian paternal aunt: aunt of ovarian cancer at 32 paternal cousin: at 35 of colon cancer paternal aunt: thyroid cancer patient had left breast cancer at 35, had neoadjuvant chemotherapy and radiation surgical history: 1. left breast lumpectomy 2. total thyroidectomy 3. port placed and removed 4. partial hysterectomy just took uterus 5. 3 c sections past medical history: 1. none social history: smoke: none alcohol: none drugs: none menarche: 13 : 4, first at 20, breast fed none BCP/Hormones: 1 year BCP to regulate periods menopause: hysterectomy at 34 - Constitutional Constitutional: Reports sweats, Denies chills - EENT Eyes: denies blurred vision, denies pain Ears: deny: decreased hearing Ears, nose, mouth and throat: Denies headache, Denies sore throat - Breasts Breasts: bilateral: as per HPI - Cardiovascular Cardiovascular: Denies chest pain, Denies shortness of breath - Respiratory Respiratory: Denies cough, Denies 7 - Gastrointestinal Gastrointestinal: Denies abdominal pain, Denies diarrhea, Denies nausea, Denies vomiting - Genitourinary (Female) Genitourinary: Reports as per HPI - Musculoskeletal Musculoskeletal: Denies myalgias - Integumentary Integumentary: Denies pruritus, Denies rash - Neurological Neurological: Denies numbness, Denies weakness - Psychiatric Psychiatric: Denies anxiety, Denies depression - Endocrine Comment: hypothyroid - Hematologic/Lymphatic Comment: none - Allergic/Immunologic Comment: morphine Past Medical History Past Medical History: Cancer, Thyroid Disorder Additional Past Medical History / Comment(s): dx. 2015 w/breast cancer, anemia during previous History of Any Multi-Drug Resistant Organisms: None Reported Past Surgical History: Section, Hysterectomy Additional Past Surgical History / Comment(s): C/S x3, thyroidectomy Past Anesthesia/Blood Transfusion Reactions: Motion Sickness, Postoperative Nausea & Vomiting (PONV) Additional Past Anesthesia/Blood Transfusion Reaction / Comment(s): severe PONV Smoking Status: Never smoker - Past Family History Father Family Medical History: Cancer Sister(s) Family Medical History: Cancer Medications and Allergies Home Medications Medication Instructions Recorded Confirmed Type Levothyroxine Sodium [Synthroid] 250 mcg PO DAILY 10/01/16 09/20/17 History Biotin 2,500 mcg PO DAILY 07/22/17 09/20/17 History Cholecalciferol (Vitamin D3) 2,000 unit PO DAILY 07/22/17 09/20/17 History [Vitamin D3] Lisinopril [Zestril] 10 mg PO DAILY 07/22/17 09/20/17 History Allergies Allergy/AdvReac Type Severity Reaction Status Date / Time morphine AdvReac Nausea & Verified 08/19/17 09:07 Vomiting Surgical - Exam - General obese - Eyes normal ocular movement - ENT no hearing loss, no congestion - Neck no masses, trachea midline - Respiratory normal respiratory effort, clear to auscultation - Cardiovascular Rhythm: regular Heart Sounds: normal: S1, S2 - Abdomen Abdomen: soft, non tender, no guarding, no rigid, no rebound - Neurologic no disoriented, no combative - Psychiatric oriented to time, oriented to person, oriented to place, speech is normal, memory intact Breast examination: Breasts: Multiple positional exam no dominant masses or nodules of concern Right axilla: No adenopathy of concern Left breast: Increased fullness in the area of prior lumpectomy incision is clean and dry Left axilla: No adenopathy of concern Assessment and Plan Assessment: Impression/plan: 1. Patient status post lumpectomy for left breast cancer 2. Increasing mass in left breast with abnormal ultrasound 3. Hypothyroid secondary to thyroid resection 4. Strong family history of cancer Plan: 1. Core biopsy ultrasound-guided of the left breast 2. Patient is considering oophrectomy with Dr. Steve 3. We'll see patient in follow-up after breast biopsy Cc: Dr. Steve, Dr. Lee
== END ==
LOC: WWCWWP 12:34
PROVIDERS: ATTEND Surgery
DX: Z53.9 Procedure and treatment not carried out, unspecified reason (principal)

== ENCOUNTER → 2017-09-30 | Day surgery (SDC) | payer OTHER ==
[2017-09-30 11:38] VITALS: PULSE 96; RESP 16; BMI 36.6
[2017-09-30 13:39] VITALS: BP 130/85; TEMP 98.1
--- NOTE | 2017-09-30 14:35 | USB ---
EXAMINATION TYPE: US biopsy breast VAD LT, Post procedure diagnostic mammo LT wo CAD DATE OF EXAM: 09/30/2017 CLINICAL HISTORY: 37-year-old female Z85.3 HISTORY OF BREAST CANCER. Patient status post 2 site lumpectomy on 10/09/2016 and radiation therapy. Patient with breast pain enlarging palpable abnormality at the 3:00 lumpectomy site. TECHNIQUE: Ultrasound guided core biopsy of the left breast 3:00 position. COMPARISON: 09/19/2017 and 05/29/2017 FINDINGS: The procedure of ultrasound guided core biopsy was explained to the patient. Benefits, alternatives, and risks were discussed. An informed consent was then obtained. The patient was placed in supine positioning for imaging and for the procedure. The overlying skin was prepped and draped in usual sterile fashion. Lidocaine buffered with bicarbonate was used as anesthetic into the skin and subcutaneous tissue up to area of concern in the 3:00 left breast. Under ultrasound guidance, a 13-gauge vacuum assisted Mammotome Elite biopsy gun device was used to obtain 7 core samples. Following this, a ribbon clip was left in lesion, suspected lumpectomy site scar, relatively similar in appearance and size as compared to 05/29/2017. The patient tolerated the procedure well without any immediate complication. The patient was kept in the radiology department for short stay after the procedure and then discharged home in stable condition. Post procedure mammogram shows ribbon clip at the 3:00 lumpectomy site. A coil clip is also present here from the biopsy performed on 05/29/2017. IMPRESSION: Successful, uncomplicated ultrasound guided re-biopsy of palpable area 3:00 left breast which corresponds to one of the patient's lumpectomy sites. The patient feels that this is enlarging. We note benign results on the recent 05/29 biopsy here. Full pathology results to follow. Pathology Results: Benign BREAST, LEFT, ULTRASOUND GUIDED CORE BIOPSY: Scar with fibrosis and inflammation. Negative for malignancy. Recommendation Follow up mammogram of the left breast in 6 months. SARKIS
== END | disposition home or self-care (01) ==
LOC: RADUSWWP 11:15
PROVIDERS: ATTEND Surgery
DX: N60.32 Fibrosclerosis of left breast (principal); N61.0 Mastitis without abscess; L90.5 Scar conditions and fibrosis of skin; Z85.3 Personal history of malignant neoplasm of breast; Z92.3 Personal history of irradiation
CPT/HCPCS: 88305; 77065; 19083; A4648; J2001

== ENCOUNTER → 2017-11-19 | Outpatient (CLI) | payer OTHER ==
[~2017-11-19] MED LIST changes: -SODIUM CHLORIDE 0.9% 500 ML in EMPTY BAG 1 BAG IV PRN; -ZOLEDRONIC ACID 4 MG in SODIUM CHLORIDE 0.9% 100 ML IV ONE
[2017-11-19 08:26] VITALS: BP 110/76; PULSE 87; RESP 16; TEMP 98.2
== END | disposition home or self-care (01) ==
LOC: PROCWHC3 08:12
PROVIDERS: ATTEND Internal Medicine Hematology & Oncology
DX: C50.112 Malignant neoplasm of central portion of left female breast (principal); Z79.811 Long term (current) use of aromatase inhibitors
CPT/HCPCS: 96402; J1950

== ENCOUNTER → 2018-06-11 | Outpatient (CLI) | payer OTHER ==
[2018-06-11 15:00] VITALS: BP 129/77; PULSE 69; RESP 16; TEMP 97.3
== END ==
LOC: PROCWHC3 14:44
PROVIDERS: ATTEND Internal Medicine Hematology & Oncology
DX: Z51.11 Encounter for antineoplastic chemotherapy (principal); C50.112 Malignant neoplasm of central portion of left female breast
CPT/HCPCS: 96402; J1950

== ENCOUNTER → 2018-09-09 | Outpatient (CLI) | payer OTHER | END | disposition home or self-care (01) | LOC: PROCWHC3 09:04 | PROVIDERS: ATTEND Internal Medicine Hematology & Oncology | DX: Z53.9 Procedure and treatment not carried out, unspecified reason (principal) ==

== ENCOUNTER → 2019-01-02 | Outpatient (CLI) | payer OTHER ==
--- NOTE | 2019-01-02 07:49 | MR ---
EXAMINATION TYPE: MR brain wo/w con DATE OF EXAM: 01/02/2019 COMPARISON: NONE HISTORY: breast ca newly diagnosed September 30, 2017 TECHNIQUE: Multiplanar, multisequence images of the brain and brainstem is performed without and with IV contras t, utilizing 10.5 mL intravenous Gadavist . FINDINGS: Diffusion weighted images demonstrate no evidence of a recent infarct or other diffusion ab normality. There is no extra-axial fluid collection or significant white matter signal abnormality. The ventricular system and cisternal spaces are normal in size and appearance. The brain volume is age appropriate. Midline structures demonstrate normal morphology. The craniocervical junction appears within normal limits. Post contrast images demonstrate no abnormal or suspicious enhancement. The dural venous sin uses appear patent. Mild to moderate mucosal thickening involving ethmoid sinuses bilaterally. Mild t o minimal mucosal thickening inferior maxillary sinuses bilaterally. Globes are intact bilaterally. IMPRESSION: No suspicious enhancing masses or enhancement to suggest metastatic disease to the brain. Chronic paranasal sinus disease otherwise unremarkable study
== END | disposition home or self-care (01) ==
LOC: RADMRIMAIN 06:35
PROVIDERS: ATTEND Internal Medicine Hematology & Oncology
DX: C50.112 Malignant neoplasm of central portion of left female breast (principal); R51 Headache
CPT/HCPCS: 70553; A9585

== ENCOUNTER → 2019-08-26 | Outpatient (CLI) | payer OTHER ==
--- NOTE | 2019-09-03 08:13 | USB ---
Reason for exam: clinical finding. History: Patient has history of breast cancer at age 36. Benign US biopsy breast VAD LT of the left breast, September 30, 2017. Benign US breast aspiration ea add LT of the left breast, May 29, 2017. Benign US breast aspiration single LT of the left breast, May 29, 2017. Benign US breast needle core LT of the left breast, May 29, 2017. Benign US breast needle core addl LT of the left breast, May 29, 2017. Chemotherapy, April 2017. Radiation therapy of the left breast, January 2017. Malignant MG pre op loc each addl LT of the left breast, October 09, 2016. Malignant MG pre op needle loc LT of the left breast, October 09, 2016. Lumpectomy of the left breast, September 2016. Took antineoplastic for 2 months beginning at age 36. Indicated problem(s): pain in the right breast. Physical Findings: Nurse Summary: Patient complains of intermittent sharp pain x 1 month right axilla (nurse mj). US Breast RT Right complete breast ultrasound includes all four quadrants, the retroareolar region and axilla. Finding demonstrates no cystic or solid lesion seen. These results were verbally communicated with the patient on 09/01/19. ASSESSMENT: Negative, BI-RAD 1 RECOMMENDATION: Clinical management of the right breast. Manage on a clinical basis with regard to right pain.
== END | disposition home or self-care (01) ==
LOC: RADUSWWP 09:29
PROVIDERS: ATTEND Internal Medicine Hematology & Oncology
DX: N64.4 Mastodynia (principal); Z85.3 Personal history of malignant neoplasm of breast

== ENCOUNTER → 2019-10-09 | Outpatient (CLI) | payer OTHER ==
[~2019-10-09] MED LIST changes: -LEUPROLIDE ACET 11.25MG SYRGKIT IM ONE; +SODIUM CHLORIDE 0.9% 500 ML 500 ML in EMPTY BAG 1 BAG IV PRN; +ZOLEDRONIC ACID 4 MG in SODIUM CHLORIDE 0.9% 100 ML IV NR
[2019-10-09 08:03] VITALS: BP 127/81; PULSE 93; RESP 20; TEMP 97
== END | disposition home or self-care (01) ==
LOC: PROCWHC3 07:55
PROVIDERS: ATTEND Internal Medicine Hematology & Oncology
DX: Z51.11 Encounter for antineoplastic chemotherapy (principal); C50.112 Malignant neoplasm of central portion of left female breast
CPT/HCPCS: 96365; J3489

== ENCOUNTER → 2020-03-30 | Outpatient (CLI) | payer OTHER ==
--- NOTE | 2020-03-30 08:27 | US ---
EXAMINATION TYPE: US abdomen complete DATE OF EXAM: 03/30/2020 COMPARISON: NONE CLINICAL HISTORY: R10.9 ABD PAIN. Pain EXAM MEASUREMENTS: Liver Length: 21.3 cm Gallbladder Wall: .2 cm CBD: .5 cm Spleen: 13.6 cm Right Kidney: 13.0 x 4.9 x 6.2 cm Left Kidney: 12.0 x 5.8 x 4.8 cm Pancreas: Tail obscured by overlying bowel gas Liver: Increased attenuation hepatomegaly Gallbladder: wnl Evidence for sonographic Vargas's sign: No CBD: wnl Spleen: Upper limits Right Kidney: wnl Left Kidney: wnl Upper IVC: wnl Abd Aorta: wnl The liver is coarse in its overall echo texture. The intrahepatic portion of the IVC and proximal abd ominal aorta are within normal limits. There is no evidence of cholelithiasis. Common bile duct is unremarkable. The visualized portions of the pancreas are homogenous. The spleen is unremarkable. Kidneys are symmetric and free of hydronephrosis. No renal lesions are seen. IMPRESSION: Probable underlying fatty hepatic infiltration with hepatomegaly.
== END | disposition home or self-care (01) ==
LOC: RADUSWWP 07:01
PROVIDERS: ATTEND Family Medicine
DX: R10.9 Unspecified abdominal pain (principal)
CPT/HCPCS: 76700

== ENCOUNTER → 2020-04-20 | Outpatient (CLI) | payer OTHER ==
[2020-04-20 07:22] VITALS: BP 155/76; PULSE 99; RESP 16; TEMP 98.6
== END | disposition home or self-care (01) ==
LOC: PROCWHC3 07:08
PROVIDERS: ATTEND Internal Medicine Hematology & Oncology
DX: C50.112 Malignant neoplasm of central portion of left female breast (principal)
CPT/HCPCS: 96365; J3489

== ENCOUNTER → 2020-10-28 | Outpatient (CLI) | payer OTHER ==
[2020-10-28 09:25] VITALS: BP 136/88; PULSE 102; RESP 16; TEMP 98.9
== END ==
LOC: PROCWHC3 08:53
PROVIDERS: ATTEND Internal Medicine Hematology & Oncology
DX: C50.112 Malignant neoplasm of central portion of left female breast (principal); Z88.5 Allergy status to narcotic agent
CPT/HCPCS: 96365; J3489

== ENCOUNTER → 2021-05-05 | Outpatient (CLI) | payer BC ==
[2021-05-05 14:03] VITALS: BP 142/84; PULSE 87; RESP 16; TEMP 98.2
== END ==
LOC: PROCWHC3 13:37
PROVIDERS: ATTEND Internal Medicine Hematology & Oncology
DX: C50.112 Malignant neoplasm of central portion of left female breast (principal); Z88.5 Allergy status to narcotic agent
CPT/HCPCS: 96365; J3489

== ENCOUNTER → 2021-05-24 | Outpatient (CLI) | payer BC ==
--- NOTE | 2021-05-24 11:41 | BD ---
EXAMINATION TYPE: Axial Bone Density DATE OF EXAM: 05/24/2021 COMPARISON: NONE CLINICAL HISTORY: Height: 65 Weight: 212.4 FRAX RISK QUESTIONS: Alcohol (3 or more units per day): no Family History (Parent hip fracture): no Glucocorticoids (More than 3mos): no (Ex: prednisone, prednisolone, methylprednisolone, dexamethasone, and hydrocortisone). History of Fracture in Adulthood: no Secondary Osteoporosis: 1. Type 1 Diabetes: no 2. Hyperthyroidism: no 3. Menopause before 45: yes 4. Malnutrition: no 5. Chronic liver disease: yes Rheumatoid Arthritis: no Current Tobacco Use: no RISK FACTORS HISTORY OF: Surgery to Spine/Hip(right/left)/Wrist (right/left): no Family History of Osteoporosis: yes Active: no Diet low in dairy products/other sources of calcium: no Postmenopausal woman: yes Lost more than 2 inches in height since high school: no MEDICATIONS: letrozole Thyroid Medications: synthroid How Lon years Additional History: pt had chemo EXAM MEASUREMENTS: Bone mineral densitometry was performed using the [employer] System. Bone mineral density as measured about the Lumbar spine is: ----- L1-L4(G/cm2): 1.029 T Score Values are as follows: ----- L2: -1.5 ----- L3: -1.0 ----- L4: -1.4 ----- L1-L4: -1.3 Bone mineral density has: decreased -10.4 % since study of: 02.04.2017 Bone mineral density about the R hip (g/cm2): 0.885 Bone mineral density about the L hip (g/cm2): 0.869 T Score values are as follows: -----R Neck: -1.1 -----L Neck: -1.2 -----R Total: -0.6 -----L Total: -1.1 Bone mineral density has: decreased -2.5 % since study of: 02.04.2017 IMPRESSION: Osteopenia lumbar spine and left hip. NOTE: T-SCORE=SD OF THE YOUNG ADULT MEAN.
== END | disposition home or self-care (01) ==
LOC: RADBDWWP 08:19
PROVIDERS: ATTEND Internal Medicine Hematology & Oncology
DX: M85.89 Other specified disorders of bone density and structure, multiple sites (principal); Z79.890 Hormone replacement therapy
CPT/HCPCS: 77080

== ENCOUNTER → 2021-11-30 | Outpatient (CLI) | payer BC ==
[2021-11-30 07:50] VITALS: BP 150/90; PULSE 86; RESP 16; TEMP 97.8
== END ==
LOC: PROCWHC3 07:30
PROVIDERS: ATTEND Internal Medicine Hematology & Oncology
DX: C50.112 Malignant neoplasm of central portion of left female breast (principal); Z88.5 Allergy status to narcotic agent
CPT/HCPCS: 96365; J3489

== ENCOUNTER → 2023-06-10 | Outpatient (CLI) | payer BC ==
--- NOTE | 2023-06-10 16:58 | BD ---
EXAMINATION TYPE: Axial Bone Density DATE OF EXAM: 06/10/2023 CLINICAL HISTORY: 42 years old Female. ICD-10 CODE: M85.9 DISORDER OF BONE DENSITY Height: 64 Weight: 210 FRAX RISK QUESTIONS: Alcohol (3 or more units per day): no Family History (Parent hip fracture): no Glucocorticoids (More than 3mos): no (Ex: prednisone, prednisolone, methylprednisolone, dexamethasone, and hydrocortisone). History of Fracture in Adulthood: no Secondary Osteoporosis: 1. Type 1 Diabetes: no 2. Hyperthyroidism: no 3. Menopause before 45: yes 4. Malnutrition: no 5. Chronic liver disease: no Rheumatoid Arthritis: no Current Tobacco Use: no RISK FACTORS HISTORY OF: Surgery to Spine/Hip(right/left)/Wrist (right/left): no MEDICATIONS: Thyroid Medications: synthroid How Lon years EXAM MEASUREMENTS: Bone mineral densitometry was performed using the [employer] System. Bone mineral density as measured about the Lumbar spine is: ----- L1-L4(G/cm2): 1.045 T Score Values are as follows: ----- L1: -1.1 ----- L2: -1.5 ----- L3: -0.9 ----- L4: -1.2 ----- L1-L4: -1.1 Z Score Values are as follows: ----- L1: -2.1 ----- L2: -2.5 ----- L3: -1.9 ----- L4: -2.2 ----- L1-L4: -2.1 Bone mineral density has: increased 1.6 % since study of: 05.24.2021 Bone mineral density about the R hip (g/cm2): 0.934 Bone mineral density about the L hip (g/cm2): 0.884 T Score values are as follows: -----R Neck: -1.2 -----L Neck: -1.3 -----R Total: -0.6 -----L Total: -1.0 Z Score values are as follows: -----R Neck: -1.4 -----L Neck: -1.5 -----R Total: -1.1 -----L Total: -1.5 Bone mineral density has: increased 0.8 % since study of: 29.9.2021 FRAX%s: The graph provided illustrates a 2.2% chance for a major osteoporotic fx and a 0.2% chance fo r the hips probability for fx in 10 years time. IMPRESSION: Osteopenia (T Score between -2.5 and -1). There is slightly increased risk of fracture and the patient may be considered for treatment. Re-Screen 2-5 years. NOTE: T-SCORE=SD OF THE YOUNG ADULT MEAN.
== END | disposition home or self-care (01) ==
LOC: RADBDWWP 14:43
PROVIDERS: ATTEND Internal Medicine Hematology & Oncology
DX: M85.89 Other specified disorders of bone density and structure, multiple sites (principal); Z78.0 Asymptomatic menopausal state
CPT/HCPCS: 77080